=== PATIENT | female | born 1980 | race Caucasian/White ===

== ENCOUNTER → 2019-01-12 | Outpatient (CLI) | payer BC | LOC: LL.MAM 15:01 | PROVIDERS: ATTEND Nurse Practitioner | DX: Z12.31 Encounter for screening mammogram for malignant neoplasm of breast (principal) | CPT/HCPCS: 77063; 77067 ==

== ENCOUNTER 2020-01-29 19:00 | Emergency (ER) | payer BC ==
--- NOTE | 2020-01-29 19:32 | EDM.PDOC ---
ED HPI GENERAL MEDICAL PROBLEM - General Chief Complaint: Upper Extremity Injury/Pain Stated Complaint: left elbow/arm pain Time Seen by Provider: 01/29/20 19:05 Source of Information: Reports: Patient History Limitations: Reports: No Limitations - History of Present Illness INITIAL COMMENTS - FREE TEXT/NARRATIVE: Pt fell and landed on back of bent left elbow Has pain in left elbow Unable to extend elbow No numbness or tingling Onset: Today, Sudden Duration: Hour(s):, Getting Worse Location: Reports: Upper Extremity, Left Quality: Reports: Throbbing Severity: Moderate Improves with: Reports: Immobilization Worsens with: Reports: Movement Context: Reports: Trauma Left Elbow Pain Score (Numeric/FACES): 6 - Related Data Allergies Allergy/AdvReac Type Severity Reaction Status Date / Time No Known Allergies Allergy Verified 01/29/20 19:24 Home Meds: Home Meds l-Norgest/E.estradiol-E.estrad [Seasonique 0.15-0.03-0.01] 1 tab PO DAILY 01/29/20 [History] Review of Systems - Review of Systems Review Of Systems: See Below Musculoskeletal: Reports: Joint Pain, Joint Swelling ED EXAM, GENERAL - Physical Exam Exam: See Below Exam Limited By: No Limitations General Appearance: Moderate Distress Extremities: Joint Swelling, Limited Range of Motion, Other (Left elbow tender Limited ROM Mild swelling Mild ecchymosis) Course - Vital Signs Last Recorded V/S: Last Vital Signs Temp 99.4 F 01/29/20 19:01 Pulse 99 01/29/20 19:01 Resp 20 01/29/20 19:01 BP 148/93 H 01/29/20 19:01 Pulse Ox 100 01/29/20 19:01 - Orders/Labs/Meds Orders: Active Orders 24 hr Category Date Time Status Elbow Min 3V Lt [CR] Stat Exams 01/29/20 19:09 Ordered - Re-Assessments/Exams Free Text/Narrative Re-Assessment/Exam: 01/29/20 19:30 Xray:; Questionable irregularity in radial head 01/29/20 19:31 Sling placed per nurse RX Tylenol #3 one every 6 hours for pain Departure - Departure Time of Disposition: 19:30 Disposition: Home, Self-Care 01 Clinical Impression: Elbow pain, left - Discharge Information *PRESCRIPTION DRUG MONITORING PROGRAM REVIEWED*: Not Applicable *COPY OF PRESCRIPTION DRUG MONITORING REPORT IN PATIENT NÉSTOR: Not Applicable Instructions: Joint Pain Additional Instructions: Ice as needed Await xray report Follow up in clinic Wear sling Rx Tylenol #3 1 pill every 6 hours for pain Sepsis Event Note (ED) - Evaluation Sepsis Screening Result: No Definite Risk - Focused Exam Vital Signs: Vital Signs Temp Pulse Resp BP Pulse Ox 01/29/20 19:01 99.4 F 99 20 148/93 H 100 - My Orders Last 24 Hours: My Active Orders 01/29/20 19:09 Elbow Min 3V Lt [CR] Stat - Assessment/Plan Last 24 Hours: My Active Orders 01/29/20 19:09 Elbow Min 3V Lt [CR] Stat
== END 2020-01-29 19:35 | disposition home or self-care (01) ==
LOC: LL.ED 19:00
DX: S50.02XA Contusion of left elbow, initial encounter (principal); W18.30XA Fall on same level, unspecified, initial encounter; Y92.89 Other specified places as the place of occurrence of the external cause
CPT/HCPCS: 73080-LT; 99283; 99283-25

== ENCOUNTER 2024-12-23 07:58 | Day surgery (SDC) | payer BC ==
[2024-12-23] MEDS ORDERED: Sodium Chloride 0.9% 10 ML Syringe FLUSH PRN (08:00)
[2024-12-23] MEDS ORDERED: Propofol 200 MG/20 ML SDV ONE (08:19)
[2024-12-23] MEDS ORDERED: Midazolam 1 MG/ML 2 ML SDV ONE (08:19)
[2024-12-23] MEDS: Lactated Ringers 1,000 ML IV SCH (08:31)
== END 2024-12-23 10:31 | disposition home or self-care (01) ==
LOC: LL.SDS 07:58
PROVIDERS: ATTEND Surgery
DX: Z12.11 Encounter for screening for malignant neoplasm of colon (principal); Z80.0 Family history of malignant neoplasm of digestive organs; Z79.84 Long term (current) use of oral hypoglycemic drugs; Z79.899 Other long term (current) drug therapy
CPT/HCPCS: 00812; 36415; 84703; J2250; J2704; J7120